=== PATIENT | female | born 1955 | race Caucasian/White ===

== ENCOUNTER → 2020-01-10 15:19 | Outpatient (BNVA) | payer OTHER, SELFPAY | PROVIDERS: Visit Provider Registered Nurse | DX: Z11.59 Encounter for screening for other viral diseases (principal); J06.9 Acute upper respiratory infection, unspecified | CPT/HCPCS: 87635 ==

== ENCOUNTER → 2020-10-01 11:33 | Outpatient (BNVA) | payer OTHER, SELFPAY | PROVIDERS: Visit Provider Registered Nurse | DX: Z20.822 Contact with and (suspected) exposure to COVID-19 (principal) | CPT/HCPCS: 87635 ==

== ENCOUNTER → 2021-09-08 10:51 | Outpatient (BNVA) | payer MEDICARE, SELFPAY | PROVIDERS: PCP Registered Nurse; Visit Provider Registered Nurse | DX: R50.9 Fever, unspecified (principal); R73.09 Other abnormal glucose; Z91.89 Other specified personal risk factors, not elsewhere classified | CPT/HCPCS: 81000; 85025; 86618; 86666; 86757 ==

== ENCOUNTER → 2022-10-26 09:17 | Outpatient (BNVA) | payer MEDICARE, SELFPAY | PROVIDERS: PCP Registered Nurse; Referring Provider Registered Nurse; Visit Provider Specialist | DX: M67.911 Unspecified disorder of synovium and tendon, right shoulder (principal); M77.8 Other enthesopathies, not elsewhere classified | CPT/HCPCS: 73030; 99204 ==

== ENCOUNTER 2022-11-24 12:36 | Outpatient (CLI) | payer MEDICARE, SELFPAY ==
--- NOTE | 2022-11-24 13:00 | MR_ITS ---
WS: [id number] MRI RIGHT SHOULDER HISTORY: right shoulder pain, frozen shoulder COMPARISON: 10/26/2022 TECHNIQUE: Multiplanar sequences of the shoulder joint are submitted. Moderate to severe AC joint arthritis. AC joint is narrowed. Increased soft tissue and bone hypertrop hy at the AC joint. Osteophytes encroach upon the supraspinatus tendon and muscle. Mild subacromial i mpingement. Small amount of subacromial and subdeltoid bursal fluid. No os acromion. Biceps tendon no rmal position and signal. Increased T2 signal is moderately throughout the the distal 3 to 4 cm of the supraspinatus tendon. Th ere is an additional 5 mm insertion site tear of the supraspinatus tendon. Mild atrophy of the supras pinatus muscle with no fatty replacement or edema. Infraspinatus and subscapularis tendons intact. Fluid distention of the subscapularis recess with multiple small loose bodies in the fluid. There is additional fluid surrounding the humeral head. No significant thickening of the axillary pouch. Corac ohumeral ligament is negative. Very mild narrowing of the glenohumeral joint. IMPRESSION: 1. Moderate to severe AC joint arthritis. 2. Insertion site tear of the distal supraspinatus tendon with additional more proximal tendinopathy. Mild supraspinatus muscle atrophy. 3. Small joint effusion surround the humeral head. 4. Subscapularis recess distention with fluid. The fluid contains multiple small loose bodies. 4. No coracohumeral ligament thickening.
== END 2022-11-24 12:37 | disposition home or self-care (01) ==
PROVIDERS: PCP Registered Nurse; Visit Provider Specialist
DX: M19.011 Primary osteoarthritis, right shoulder (principal); S46.811A Strain of other muscles, fascia and tendons at shoulder and upper arm level, right arm, initial encounter; X58.XXXA Exposure to other specified factors, initial encounter; M67.911 Unspecified disorder of synovium and tendon, right shoulder; M75.01 Adhesive capsulitis of right shoulder; M24.011 Loose body in right shoulder; M62.511 Muscle wasting and atrophy, not elsewhere classified, right shoulder
CPT/HCPCS: 73221

== ENCOUNTER → 2022-12-30 10:17 | Outpatient (BNVA) | payer MEDICARE, SELFPAY | PROVIDERS: PCP Registered Nurse; Visit Provider Nurse Practitioner | DX: M19.011 Primary osteoarthritis, right shoulder | CPT/HCPCS: 20610; 99213; J1100; J2795; J3301 ==